=== PATIENT | male | born 1965 | race African-American/Black ===

== ENCOUNTER 2019-03-06 05:54 | Inpatient (IN) ==
[2019-03-06] MEDS ORDERED: *HR* Labetalol 20 MG/4 ML SYRINGE IVP ONE (09:38)
[2019-03-06] MEDS ORDERED: Naloxone 0.4 MG/ML INJ IVP PRN (10:34)
[2019-03-06] MEDS ORDERED: Ondansetron ODT 4 MG TAB.RAPDIS SL PRN (10:41)
[2019-03-06] MEDS ORDERED: Ipratropium/Albuterol Neb 3 ML IH PRN (10:46)
[2019-03-06 11:25] LABS: Basophils # 0.1 K/mcL (0.0-0.2); Basophils % 0.7 %; Eosinophils # 0.2 K/mcL (0.0-0.6); Eosinophils % 2.3 %; Hematocrit 26.8 % (37.5-50.1); Hemoglobin 9.3 g/dL (12.9-16.9); Immature Granulocytes % 0.3 % (0-4); Lymphocytes # 0.7 K/mcL (0.6-4.6); Lymphocytes % 9.9 %; Mean Corpuscular HGB Conc 34.7 g/dL (31.6-35.5); Mean Corpuscular Hemoglobin 31.8 pg (28.0-33.3); Mean Corpuscular Volume 91.8 fL (83.0-100.0); Mean Platelet Volume 12.5 fL (9.4-12.4); Monocytes # 0.5 K/mcL (0.0-1.3); Monocytes % 7.1 %; Platelet Count 123 K/mcL (140-400); Red Blood Count 2.92 M/mcL (4.19-5.50); Red Cell Distribution Width 15.2 % (11.5-14.5); Segmented Neutrophils % 79.7 %; White Blood Count 7.5 K/mcL (4.3-11.1)
[2019-03-06 11:30] LABS: Prothrombin Time 11.8 Seconds (9.4-12.1)
[2019-03-06 11:33] LABS: Activated Partial Thrombo Time 32.7 Seconds (26.0-36.0)
[2019-03-06 11:42] LABS: VBG HCO3 31 mEq/L (21-27); VBG PCO2 42 mmHg (41-51); VBG PH 7.48 pH Units (7.32-7.42); VBG PO2 28 mmHg (25-50)
[2019-03-06 11:56] LABS: Troponin I 0.05 ng/mL (< 0.04)
[2019-03-06 12:01] LABS: Albumin 4.1 g/dL (3.5-5.7); Albumin/Globulin Ratio 1.4 (1.1-2.2); Bilirubin,Total 0.5 mg/dL (0.3-1.0); Calcium 9.8 mg/dL (8.6-10.3); Globulin 2.9 g/dL (2.4-3.5); Magnesium 2.5 mg/dL (1.6-2.6); Phosphorous 3.8 mg/dL (2.7-4.5); Potassium 5.4 mEq/L (3.5-5.1)
[2019-03-06 12:02] LABS: Procalcitonin 0.76 ng/mL (0.00-0.15)
[2019-03-06] MEDS: Azithromycin 500 MG in 0.9 % Sodium Chloride 250 ML IVPB SCH (12:11)
[2019-03-06] MEDS: cefTRIAXone 1,000 MG in Water for inj. (sterile) 10 ML IVP SCH (12:11)
[2019-03-06 12:50] LABS: Hepatitis B Surface Antibody 4.78 mIU/mL
[2019-03-06 13:01] LABS: Hepatitis B Surface Antigen Nonreactive (Nonreactive)
[2019-03-06] MEDS ORDERED: 0.9 % Sodium Chloride 250 ML IVC PRN (13:43)
[2019-03-06] MEDS ORDERED: 0.9 % Sodium Chloride 1,000 ML PRIME SCH (13:45)
[2019-03-06] MEDS ORDERED: *HR* Propofol 200 MG/20 ML VIAL IVP ONE (14:34)
[2019-03-06] MEDS ORDERED: *HR* Midazolam HCl 2 MG/2 ML VIAL ONE (14:34)
[2019-03-06] MEDS ORDERED: *HR* FentaNYL (PF) 100 MCG/2 ML VIAL ONE (14:34)
[2019-03-06] MEDS ORDERED: Ondansetron 4 MG/2 ML VIAL ONE (14:35)
[2019-03-06] MEDS ORDERED: Dexamethasone 4 MG/ML VIAL ONE (14:35)
[2019-03-06] MEDS ORDERED: *HR* Rocuronium Bromide 50 MG/5 ML VIAL ONE (14:35)
[2019-03-06] MEDS ORDERED: Lidocaine -MPF 2% 2 ML VIAL ONE (14:35)
[2019-03-06] MEDS ORDERED: *HR* Succinylcholine 200 MG/10 ML VIAL IVP ONE (14:35)
[2019-03-06] MEDS ORDERED: Ondansetron 4 MG/2 ML VIAL IVP ONE (14:37)
[2019-03-06] MEDS ORDERED: *HR* Labetalol 20 MG/4 ML SYRINGE IVP PRN (14:37)
[2019-03-06] MEDS ORDERED: Albuterol 2.5 MG/3 ML NEBULIZER IH PRN (14:37)
[2019-03-06] MEDS ORDERED: *HR* Promethazine 25 MG/ML VIAL IVP PRN (14:37)
[2019-03-06] MEDS ORDERED: Lidocaine -MPF 4% 5 ML AMPUL ONE (14:40)
[2019-03-06] MEDS ORDERED: *HR* EPINEPHrine 1 MG/10 ML SYRINGE INTRATRACH ONE (15:00)
[2019-03-06] MEDS ORDERED: Desmopressin Acetate SPRAY 5 ML BOTTLE NS ONE (15:10)
[2019-03-06] MEDS ORDERED: *HR* EPINEPHrine 1 MG/10 ML SYRINGE ONE (15:11)
[2019-03-06] MEDS: Budesonide/Formoterol 160/4.5 1 PUFF INH IH SCH ×2 (15:39→20:36)
[2019-03-06] MEDS: methylPREDNISolone 125 MG/2 ML VIAL IVP SCH ×2 (18:05→23:50)
[2019-03-06 18:29] LABS: Complement C3 115 mg/dL (87-200)
[2019-03-06] MEDS ORDERED: *HR* Heparin 10,000 UNIT/10 ML VIAL IV PRN (19:56)
[2019-03-06] MEDS: Calcium Acetate 667 MG CAPSULE PO SCH (21:49)
[2019-03-06 21:51] LABS: Appearance of Body Fluid Cloudy (Clear); Volume of Body Fluid 40 mL
[2019-03-06 23:09] LABS: Adenovirus Not Detected (Not Detect); Bordetella Pertussis Not Detected (Not Detect); Chlamydophila pneumoniae Not Detected (Not Detect); Coronavirus 229E Not Detected (Not Detect); Coronavirus HKU1 Not Detected (Not Detect); Coronavirus NL63 Not Detected (Not Detect); Coronavirus OC43 Not Detected (Not Detect); Human Metapneumovirus Not Detected (Not Detect); Human Rhinovirus/Enterovirus Not Detected (Not Detect); Influenza A Subtype 2009 H1 Not Detected (Not Detect); Influenza B Not Detected (Not Detect); Mycoplasma pneumoniae Not Detected (Not Detect); Parainfluenza Virus 1 Not Detected (Not Detect); Parainfluenza Virus 2 Not Detected (Not Detect); Parainfluenza Virus 3 Not Detected (Not Detect); Parainfluenza Virus 4 Not Detected (Not Detect); Respiratory Syncytial Virus Not Detected (Not Detect)
[2019-03-07 06:50] LABS: Hemoglobin 9.2 g/dL (12.9-16.9); Mean Corpuscular HGB Conc 35.4 g/dL (31.6-35.5); Mean Corpuscular Hemoglobin 32.9 pg (28.0-33.3); Mean Corpuscular Volume 92.9 fL (83.0-100.0); Mean Platelet Volume 12.9 fL (9.4-12.4); Platelet Count 123 K/mcL (140-400); Red Cell Distribution Width 15.3 % (11.5-14.5); White Blood Count 5.7 K/mcL (4.3-11.1)
[2019-03-07] MEDS ORDERED: 0.9 % Sodium Chloride 250 ML IVC PRN (07:09)
[2019-03-07 07:10] LABS: Calcium 9.3 mg/dL (8.6-10.3)
[2019-03-07] MEDS: methylPREDNISolone 125 MG/2 ML VIAL IVP SCH ×3 (08:05→23:35)
[2019-03-07] MEDS: Calcium Acetate 667 MG CAPSULE PO SCH ×2 (08:05→20:02)
[2019-03-07] MEDS: Budesonide/Formoterol 160/4.5 1 PUFF INH IH SCH ×2 (10:50→19:58)
[2019-03-07] MEDS: cefTRIAXone 1,000 MG in Water for inj. (sterile) 10 ML IVP SCH (13:36)
[2019-03-07] MEDS: Isosorbide MONOnitrate (24 HR) 30 MG TAB.ER.24H PO SCH (13:37)
[2019-03-07] MEDS: Metoprolol XL (24 HR) Succ 50 MG TAB.ER.24H PO SCH (13:37)
[2019-03-07] MEDS: amLODIPine 5 MG TABLET PO SCH (13:37)
[2019-03-07] MEDS: Lisinopril 20 MG TABLET PO SCH (13:37)
[2019-03-07] MEDS: Azithromycin 500 MG in 0.9 % Sodium Chloride 250 ML IVPB SCH (13:42)
[2019-03-08 03:30] LABS: Basophils % 0.1 %; Hematocrit 25.4 % (37.5-50.1); Hemoglobin 8.7 g/dL (12.9-16.9); Immature Granulocytes % 0.4 % (0-4); Lymphocytes # 0.4 K/mcL (0.6-4.6); Mean Corpuscular HGB Conc 34.3 g/dL (31.6-35.5); Mean Corpuscular Hemoglobin 32.2 pg (28.0-33.3); Mean Corpuscular Volume 94.1 fL (83.0-100.0); Mean Platelet Volume 13.3 fL (9.4-12.4); Monocytes # 0.3 K/mcL (0.0-1.3); Monocytes % 2.5 %; Neutrophils # 10.9 K/mcL (1.6-8.9); Platelet Count 119 K/mcL (140-400); Red Cell Distribution Width 15.1 % (11.5-14.5)
[2019-03-08 03:31] LABS: White Blood Count 11.6 K/mcL (4.3-11.1)
[2019-03-08 03:49] LABS: Phosphorous 3.1 mg/dL (2.7-4.5)
[2019-03-08 03:51] LABS: Calcium 8.8 mg/dL (8.6-10.3)
[2019-03-08 07:01] LABS: Hematocrit 25.4 % (37.5-50.1); Hemoglobin 9.1 g/dL (12.9-16.9); Mean Corpuscular HGB Conc 35.8 g/dL (31.6-35.5); Mean Corpuscular Hemoglobin 32.4 pg (28.0-33.3); Mean Corpuscular Volume 90.4 fL (83.0-100.0); Mean Platelet Volume 12.1 fL (9.4-12.4); Platelet Count 124 K/mcL (140-400); Red Blood Count 2.81 M/mcL (4.19-5.50); White Blood Count 11.5 K/mcL (4.3-11.1)
[2019-03-08] MEDS: Budesonide/Formoterol 160/4.5 1 PUFF INH IH SCH ×2 (08:17→20:07)
[2019-03-08] MEDS: methylPREDNISolone 125 MG/2 ML VIAL IVP SCH (10:25)
[2019-03-08] MEDS: Metoprolol XL (24 HR) Succ 50 MG TAB.ER.24H PO SCH (10:29)
[2019-03-08] MEDS: cefTRIAXone 1,000 MG in Water for inj. (sterile) 10 ML IVP SCH (10:32)
[2019-03-08] MEDS: Azithromycin 500 MG in 0.9 % Sodium Chloride 250 ML IVPB SCH (10:33)
[2019-03-08] MEDS: amLODIPine 5 MG TABLET PO SCH (10:33)
[2019-03-08] MEDS: Calcium Acetate 667 MG CAPSULE PO SCH ×2 (10:33→17:02)
[2019-03-08] MEDS: Lisinopril 20 MG TABLET PO SCH (10:33)
[2019-03-08] MEDS: Isosorbide MONOnitrate (24 HR) 30 MG TAB.ER.24H PO SCH (10:33)
[2019-03-08] MEDS: predniSONE 20 MG TABLET PO SCH (17:02)
[2019-03-09 01:07] LABS: Hematocrit 26.3 % (37.5-50.1); Hemoglobin 9.2 g/dL (12.9-16.9); Immature Granulocytes % 0.7 % (0-4); Lymphocytes % 3.9 %; Mean Corpuscular Hemoglobin 32.6 pg (28.0-33.3); Mean Corpuscular Volume 93.3 fL (83.0-100.0); Platelet Count 139 K/mcL (140-400); Red Blood Count 2.82 M/mcL (4.19-5.50); Segmented Neutrophils % 88.2 %; White Blood Count 11.8 K/mcL (4.3-11.1)
[2019-03-09 01:08] LABS: Basophils % 0.1 %; Lymphocytes # 0.5 K/mcL (0.6-4.6); Monocytes # 0.8 K/mcL (0.0-1.3); Monocytes % 7.1 %; Neutrophils # 10.4 K/mcL (1.6-8.9)
[2019-03-09 01:33] LABS: Calcium 8.5 mg/dL (8.6-10.3); Potassium 5.2 mEq/L (3.5-5.1)
[2019-03-09] MEDS ORDERED: 0.9 % Sodium Chloride 250 ML IVC PRN (07:02)
[2019-03-09] MEDS ORDERED: cefTRIAXone 1,000 MG in 0.9 % Sodium Chloride Mini Bag 100 ML IVPB SCH (09:00)
[2019-03-09] MEDS ORDERED: Azithromycin 500 MG in 0.9 % Sodium Chloride 250 ML IVPB SCH (09:00)
[2019-03-09 09:16] LABS: Influenza A PCR Body Fluid NOT DETECTED; Influenza B PCR Body Fluid NOT DETECTED; RVP Body Fluid Source BAL
[2019-03-09] MEDS ORDERED: *HR* Heparin 10,000 UNIT/10 ML VIAL IV PRN (09:58)
[2019-03-09] MEDS: Budesonide/Formoterol 160/4.5 1 PUFF INH IH SCH (10:16)
[2019-03-09 11:11] LABS: HSV Source BAL
[2019-03-09] MEDS: Calcium Acetate 667 MG CAPSULE PO SCH (11:50)
[2019-03-09 12:05] VITALS: BP 127/65
[2019-03-09] MEDS: predniSONE 20 MG TABLET PO SCH (13:31)
[2019-03-09] MEDS: Isosorbide MONOnitrate (24 HR) 30 MG TAB.ER.24H PO SCH (13:32)
[2019-03-09] MEDS: amLODIPine 5 MG TABLET PO SCH (13:32)
[2019-03-09] MEDS: Lisinopril 20 MG TABLET PO SCH (13:33)
[2019-03-09] MEDS: Metoprolol XL (24 HR) Succ 50 MG TAB.ER.24H PO SCH (13:33)
[2019-03-09] MEDS ORDERED: Azithromycin 250 MG TABLET PO SCH (13:45)
[2019-03-09 14:08] LABS: ANA IgG by ELISA DETECTED (None Detected); Serine Protease-3 Antibody 24 AU/mL (0-19)
[2019-03-09 14:23] LABS: RSV PCR Body Fluid NOT DETECTED
[2019-03-09] MEDS ORDERED: CefTRIAXone 1,000 MG VIAL ONE (14:32)
[2019-03-09 15:24] LABS: GBM IgG Multiplex Bead Assay 3 AU/mL (0-19); Glomerular Basement Memb IgG NEGATIVE (Negative)
[2019-03-10 13:45] LABS: ANA HEp-2 IgG IFA <1:80 (<1:80)
== END 2019-03-09 16:19 | disposition home or self-care (01) | DRG 640 ==
LOC: CDU → SUATTDRO 08:45 → CDU 16:10 → 2ANU 03-08 18:23
PROVIDERS: ADMIT Family Medicine; ATTEND Internal Medicine